=== PATIENT | female | born 1960 | race Caucasian/White ===

== ENCOUNTER → 2019-03-10 | Outpatient (CLI) | payer BC ==
--- NOTE | 2019-03-10 12:59 | KCIC ---
EXAM: Lumbar spine MRI without contrast. HISTORY: Lower back pain and left lower extremity radiculopathy. TECHNIQUE: Multiplanar, multisequence magnetic resonance imaging of the lumbar spine was performed without contrast. COMPARISON: None. FINDINGS: There is lumbar levoscoliosis centered at L3. There is grade 1 anterolisthesis of L4 and L5 on S1, measuring 3 mm and 5 mm. There is 4 mm retrolisthesis of L1 on L2 and L2 on L3 and 2 mm right listhesis of L3 on L4. There is degenerative endplate remodeling and disc desiccation at all levels. There are few incidental osseous hemangiomas. There is no suspicious osseous lesion. There is edema within the right greater than left L4 and L5 pedicles, likely degenerative or due to a stress reaction. The conus terminates at the superior aspect of L2. At T10-T11, there is a posterior disc protrusion superimposed on a disc bulge and endplate remodeling. There is mild central canal stenosis, partially included on the [id number]. At T11-T12, there is a minimal posterior central disc protrusion. There is mild bilateral facet arthropathy. There is no stenosis. At T12-L1, there is no stenosis. At L1-L2, there is a disc bulge and endplate osteophytosis. There is mild bilateral facet arthropathy. There is no stenosis. At L2-L3, there is a right lateral predominant disc bulge and endplate osteophytosis. There is moderate right and mild left facet arthropathy. There is mild central canal stenosis. At L3-L4, there is a right lateral predominant disc bulge and endplate osteophytosis. There is moderate right and mild left facet arthropathy. There is prominent dorsal epidural fat. There is mild central canal stenosis. At L4-L5, there is a right lateral predominant disc bulge and endplate osteophytosis. There is severe bilateral facet arthropathy. There is hypertrophy of the ligamentum flavum. There is prominent dorsal epidural fat. There is mild bilateral foraminal stenosis. There is severe central canal stenosis. At L5-S1, there is a posterior central disc protrusion with 2 mmHg inferior extrusion and annular tear superimposed on a left lateral predominant disc bulge and endplate osteophytosis. There is mild right and moderate left facet arthropathy. There is abutment the exiting left L5 nerve root without significant foraminal stenosis. IMPRESSION: 1. Multilevel degenerative change throughout the lower thoracic and lumbar spine, described in detail above. This is associated with mild central canal stenosis at L2-L3 and L3-L4, mild bilateral foraminal and severe central canal stenosis at L4-L5 and abutment of the exiting left L5 nerve root without significant foraminal stenosis at L5-S1. 2. Lumbar scoliosis and mild multilevel listhesis, described above. 3. Edema within the bilateral L5 and L4 pedicles, likely degenerative or due to a stress reaction. Electronically signed by: Devika Farah MD (03/10/2019 12:57 PM) [place] [id number]
== END | disposition home or self-care (01) ==
LOC: KCIC MRI 10:50
PROVIDERS: ATTEND Specialist
DX: M51.24 Other intervertebral disc displacement, thoracic region (principal); M51.27 Other intervertebral disc displacement, lumbosacral region; M12.88 Other specific arthropathies, not elsewhere classified, other specified site; M47.815 Spondylosis without myelopathy or radiculopathy, thoracolumbar region; M48.05 Spinal stenosis, thoracolumbar region; M25.78 Osteophyte, vertebrae
CPT/HCPCS: 72148

== ENCOUNTER → 2019-04-19 | Outpatient (CLI) | payer BC ==
[~2019-04-19] MED LIST: ACET500T68 PO; BUPR150T15 PO; BUPR300T3 PO; DEXT10CA10 PO; IOHEXOL 180 MG/ML 10 ML VIAL. ONE; LAMO200T25 PO; OMEP40CA45 PO; TIZA4TAB2 PO; methylPREDNISolone ACETATE 40 MG/ML VIAL. ONE; methylPREDNISolone ACETATE 80 MG/ML VIAL. ONE
--- NOTE | 2019-04-19 18:13 | PAIN ---
DATE OF SERVICE: 04/19/2019 PROGRESS NOTE FOR INITIAL CONSULTATION FOR PAIN CLINIC CHIEF COMPLAINT: Low back and left lower extremity pain. HISTORY OF PRESENT ILLNESS: This is a 59-year-old female who presents with history of pain in the low back, left lower extremity for about 2 months, not the result of any specific injury or action that she is aware of, but increasingly worse with activity, especially at work. 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 The patient also has some pain radiating into the superior aspect of the lumbar spine into the mid upper back between the shoulders as well, worse on the left than the right. The pain is radiating to posterior gluteus, posterior thigh, posterior calf, lateral thigh and calf into the posterior lower leg and foot on the left side. The patient reports it is becoming more constant, sharp, shooting, numbness, radiating pain in the leg, intermittent in intensity. No significant radiation to the right side, but tenderness in the mid upper back as well and is aching quality in the back itself. The patient did have MRI scan of the lumbar spine showing some significant posterior central disk protrusion at L5-S1 with 2-mm inferior extrusion and annular tear superimposed on the left lateral predominant disk bulge and endplate osteophytosis abutting the exiting left L5 nerve root. L4-L5 shows right lateral predominant disk bulge and endplate osteophytosis with mild bilateral foraminal stenosis and severe central canal stenosis. The patient rates her disability rating 0-10, 10 being the worst, as a 7 with family home responsibilities, recreation, social activity, occupation and sexual behavior and life support activities, and 5 with self-care activities. The patient reports no significant loss of motor function, but significant fatigability in the left lower extremity with standing, walking, changing positions, better with sitting or lying down, does awaken her from sleep about 3-4 times a night, does not affect her bowel or bladder control, but again does affect her ability to walk. She is not using any assistive devices. The patient has tried a chiropractor treatment as well as exercise, also had epidural injections in early 1999 in an outside facility. 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 She is still doing some stretching and strengthening exercises as well, putting heat application on her back as well. The patient has tried ibuprofen and Tylenol, also hydrocodone and a muscle relaxer, she is not sure of the name of, which did help to a moderate extent with each of these. PAST MEDICAL HISTORY: Significant for cigarette smoking a third of a pack a day for 40 years, continues to smoke, skin cancer in 2015 on her left lower leg. PREVIOUS SURGERY: Include cataract extraction, right elbow fracture, closed reduction of the left finger, tonsillectomy, pilonidal cystectomy, cervical fusion C6-C7 in 2004 and cholecystectomy in 2009. CURRENT MEDICATIONS: Include Wellbutrin, lamotrigine, amphetamine, omeprazole, muscle relaxer, Tylenol, and Reliance. ALLERGIES: THE PATIENT IS ALLERGIC TO SULFA AND VANCOMYCIN, WHICH CAUSES A RASH. FAMILY HISTORY: Significant for hypercholesterolemia and arthritis. SOCIAL HISTORY: The patient drinks alcohol about 3-4 beers once or twice a week, smokes about a third of a pack of cigarettes, has for the past 40 years. Does not use any illegal, illicit or recreational drugs. She is , lives with her spouse, one child, living at home, lives locally in [place], [place]. 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 REVIEW OF SYSTEMS: The patient's review of systems is positive for those items mentioned in history of present illness. All systems reviewed and otherwise negative and well documented on the patient's chart. PHYSICAL EXAMINATION: VITAL SIGNS: The patient's blood pressure is 140/88, pulse 85, respirations are 16, temperature is 98.2 degrees Fahrenheit, height is 5 feet 6 inches, and weight is 196 pounds. GENERAL: The patient is awake, alert, oriented, appropriate, very pleasant demeanor. HEENT: Shows normocephalic, atraumatic. Extraocular movements are intact and symmetrical. Oral cavity shows mucous membranes moist and pink. Dentition is intact. NECK: Shows anterior throat supple without palpable lymphadenopathy noted. There is well-healed surgical scar in the right anterior throat is noted. Swallow reflex symmetrical. Neck shows full rotational motion of cervical spine, both laterally as well as extension and flexion without difficulty. CHEST: Shows normal on inspection. Breath sounds are clear bilaterally. HEART: Shows S1, S2 clear. No murmurs auscultated. ABDOMEN: Soft, nontender, nondistended. No palpable organomegaly is noted. No rebound or guarding demonstrated. BACK: Shows spine grossly in the midline. Normal-appearing thoracic kyphosis and some minor flattening of lumbar lordotic curvature. Lumbar paraspinous muscle shows symmetrical on inspection as is the thoracic paraspinous musculature with palpation shows some moderate tenderness diffusely in the left greater than the right thoracic middle and lower distribution of paraspinous muscles, but without specific trigger points, without atrophy or hypertrophy. Lumbar paraspinous muscle shows symmetrical with palpation shows some moderate tenderness diffusely bilaterally throughout the upper and lower distribution of paraspinous muscles, but only diffusely without significant radiation. The patient's back shows good rotational motion of lumbar spine, both laterally as well as extension and flexion without significant increase in pain, no tenderness over the spinous processes, sacrum or sacroiliac regions with palpation as well bilaterally. EXTREMITIES: The patient's lower extremities show deep tendon reflexes at 2+ in the patellar, 1+ tendo-calcaneus tendons. Motor exam is strong with 5/5 dorsiflexion, extension, quadriceps and hamstring flexion. Peripheral pulses are 1+ posterior tibia. No peripheral edema is noted bilaterally. Straight leg raise noted to be negative for reproduction of radicular symptoms on the right, but mildly tender, mildly positive on the left at about 45 degrees, decreased with knee flexion. Gaenslen's and Tio's maneuvers are negative bilaterally as well. The patient is able to stand, stand on her toes without significant difficulty or loss of balance, walks with normal appearing gait, does not appear to favor the right or left lower extremity significantly with a short walk in the office today. SKIN: Shows warm and dry, good turgor. No edema. No sores, rashes or bruising throughout. IMPRESSION: 1. This is a 59-year-old female with approximately 2-month history of increasing pain, low back, left lower extremity in a radicular pattern. 2. MRI scan of lumbar spine as noted. 3. Arthritis. 4. Cigarette smoking. PLAN: Options were discussed with the patient including conservative medical managements, physical therapies and interventional techniques. She would like to pursue interventional techniques. We discussed a lumbar epidural steroid injection using description as well as anatomical models to describe the procedure. Risks were then discussed including, but not limited to bleeding, infection, possibility of epidural hematoma, subsequent neurological compromise, dural puncture, headaches, spinal cord and/or nerve damage, side effects of steroid medication and poor results regarding pain control. The patient understands and wished to proceed. The patient will return to the clinic in approximately 2 weeks for followup. She was counseled on return appointment, activity level and side effects to be aware of. DIAGNOSES: Lumbar radiculopathy with lumbar degenerative disk disease and lumbar spinal stenosis. PROCEDURE: Lumbar epidural steroid injection, translaminar approach L5-S1 level using C-arm fluoroscopic guidance under sterile prep and drape using local anesthetic. MEDICATION INJECTED: A total of 120 mg Depo-Medrol plus 10 mL of preservative-free normal saline and 2 mL of contrast. CONDITION AT DISCHARGE: Stable. The patient tolerated procedure well, had no complications. MOE SORIA MD DR: CHANCE/javier JOB#: [id number] / [id number] ALONDRA Bangura MD
== END ==
LOC: PNCL 13:21
PROVIDERS: ATTEND Anesthesiology
DX: M51.16 Intervertebral disc disorders with radiculopathy, lumbar region (principal); M48.061 Spinal stenosis, lumbar region without neurogenic claudication; F17.210 Nicotine dependence, cigarettes, uncomplicated; Z85.828 Personal history of other malignant neoplasm of skin; Z90.49 Acquired absence of other specified parts of digestive tract; Z98.890 Other specified postprocedural states; Z88.1 Allergy status to other antibiotic agents
CPT/HCPCS: 62323; J1030; J1040; Q9965

== ENCOUNTER → 2019-05-03 | Outpatient (CLI) | payer BC ==
[~2019-05-03] MED LIST changes: -IOHEXOL 180 MG/ML 10 ML VIAL. ONE; -methylPREDNISolone ACETATE 40 MG/ML VIAL. ONE; -methylPREDNISolone ACETATE 80 MG/ML VIAL. ONE
--- NOTE | 2019-05-03 23:50 | PAIN ---
DATE OF SERVICE: 05/03/2019 PROGRESS NOTE FOR PAIN CLINIC DIAGNOSES: Lumbar radiculopathy with lumbar degenerative disc disease and lumbar spinal stenosis. HISTORY OF PRESENT ILLNESS: The patient is a 59-year-old female who returns for followup status post lumbar epidural steroid injection x 1. The patient reports about 60% improvement overall, still some pain in the low back and left lower extremity as it was previously, but much improved. The patient has been increasing her distance of walking, doing work activities, household activities, traveling with greater ease and comfort. The patient reports it still awakens her from sleep at night, but only about once every 6 hours. The patient reports it as a burning pain, it is in the low back, radiating to posterior gluteus, constant, aching pain across the back and some tingling and shooting into the leg. The patient reports it as a 6 on a scale of 10 at its worst over the past week, 4 on average, 2 at its least and is a 4 today. The patient reports no new motor or sensory deficits, no new bowel or bladder incontinence or other complaints. PHYSICAL EXAMINATION: VITAL SIGNS: The patient's blood pressure is 140/91, pulse 88, respirations are 18, temperature is 98.2 degrees Fahrenheit, height is 5 feet 6 inches, and weight is 197 pounds. GENERAL: The patient is awake, alert, oriented, appropriate, very pleasant demeanor. HEENT: Shows normocephalic and atraumatic. Extraocular movements are intact and symmetrical. Oral cavity shows mucous membranes moist and pink. Dentition is intact. NECK: Shows anterior throat supple without palpable lymphadenopathy noted. Swallow reflex symmetrical. CHEST: Shows normal on inspection. Breath sounds are clear to auscultation bilaterally. HEART: Shows S1 and S2 clear. No murmurs auscultated. ABDOMEN: Soft, obese, nontender, and nondistended. BACK: Shows spine grossly in the midline. Normal-appearing thoracic kyphosis and some minor flattening of lumbar lordotic curvature. Lumbar paraspinous muscle shows symmetrical on inspection, no radiation, no asymmetry. The patient shows full rotational motion of the lumbar spine, both laterally as well as extension and flexion without significant difficulty. EXTREMITIES: The patient's lower extremities show deep tendon reflexes 2+ in the patellar, 1+ tendo-calcaneus tendons. Motor exam is 5/5 with dorsiflexion, extension, quadriceps and hamstring flexion and symmetrical. Peripheral pulses are 1+ posterior tibial. No peripheral edema is noted bilaterally. PLAN: Options were discussed with the patient. The patient's old chart was reviewed as her current medication regimen updated. Current review of systems updated today as well. We will hold on any further injections at this time as she is doing quite a bit better and would like to increase her activity and see how she tolerates this. We also talked about a Medrol Dosepak, which we will give her today with instructions and side effects to be aware of. The patient will try this. In the meantime, we will have her back in about 2 weeks to see how she is doing. If significantly improves, may hold on any further injections. If not, we will plan on second lumbar epidural steroid injection at that time. MOE SORIA MD DR: CHANCE/javier JOB#: [id number] / [id number]
== END | disposition home or self-care (01) ==
LOC: PNCL 14:43
PROVIDERS: ATTEND Anesthesiology
DX: M51.16 Intervertebral disc disorders with radiculopathy, lumbar region (principal); M48.061 Spinal stenosis, lumbar region without neurogenic claudication
CPT/HCPCS: G0463

== ENCOUNTER → 2019-05-30 | Outpatient (CLI) | payer BC ==
[~2019-05-30] MED LIST changes: +IOHEXOL 180 MG/ML 10 ML VIAL. ONE; +methylPREDNISolone ACETATE 40 MG/ML VIAL. ONE; +methylPREDNISolone ACETATE 80 MG/ML VIAL. ONE
--- NOTE | 2019-05-30 22:56 | PAIN ---
DATE OF SERVICE: 05/30/2019 PROGRESS NOTE FOR PAIN CLINIC DIAGNOSES: Lumbar radiculopathy with lumbar degenerative disk disease and lumbar spinal stenosis. HISTORY OF PRESENT ILLNESS: The patient is a 59-year-old female who returns for followup status post lumbar epidural steroid injection x 1. The patient reports about 80% improvement until about 1 week ago. The patient reported about 60% improvement and it got better to 80% until the last week, the pain began to return, fairly significantly in the low back, left lower extremity, mostly in the posterior gluteus, radiating to posterior thigh, posterior calf to the level of the ankle. The patient reports it is sharp and shooting at times, radiating in quality, some on the lateral thigh as well, but mostly posteriorly. The patient reports it is an 8-9 on a scale of 10 at its worst, 8 on average, 3 at its least and is an 8 today. The patient reports it is worse with walking, standing, changing positions, better with sitting or lying down, does not awaken her from sleep at night. Initially, she was walking greater distances with greater ability to work and doing work activities, household activities with much greater ease and comfort, again sleeping well, but now the pain is beginning to return. PHYSICAL EXAMINATION: VITAL SIGNS: The patient's blood pressure is 137/77, pulse is 86, respirations are 18, temperature 98.2 degrees Fahrenheit, height is 5 feet 6 inches, weight is 197 pounds. GENERAL: The patient is awake, alert, oriented, appropriate, very pleasant demeanor. HEENT: Shows normocephalic, atraumatic. Extraocular movements are intact and symmetrical. Oral cavity: Mucous membranes moist and pink. Dentition is intact. NECK: Shows anterior throat supple without palpable lymphadenopathy noted. Swallow reflex symmetrical. CHEST: Shows normal on inspection. Breath sounds are clear bilaterally. HEART: Shows S1, S2 clear. No murmurs auscultated. ABDOMEN: Soft, nontender, nondistended. No palpable organomegaly is noted. No rebound or guarding demonstrated. BACK: Shows spine grossly in the midline. Normal appearing thoracic kyphosis and some minor flattening of lumbar lordotic curvature. Lumbar paraspinous muscle shows symmetrical on inspection, with palpation shows some moderate tenderness diffusely bilaterally going diffusely without significant radiation. The patient's back shows good rotational motion of lumbar spine, both laterally as well as extension and flexion without significant difficulty. EXTREMITIES: Lower extremities show deep tendon reflexes at 2+ in the patellar, 1+ tendo-calcaneus tendons. Motor exam is strong with 5/5 dorsiflexion, extension, quadriceps and hamstring flexion. Peripheral pulses are 1+ posterior tibia. No peripheral edema is noted bilaterally. Options were discussed with the patient. The patient's old chart was reviewed as her current medication regimen updated. Current review of systems updated today as well. We will proceed with a second in the series of lumbar epidural steroid injection today with fluoroscopic guidance. Risks were again discussed including, but not limited to bleeding, infection, possibility of epidural hematoma, subsequent neurological compromise, dural puncture, headaches, spinal cord and/or nerve damage, side effects of steroid medication and poor results regarding pain control. The patient understands and wished to proceed. The patient will return to clinic in approximately 2 weeks for followup, was counseled on return appointment, activity level and side effects to be aware of. DIAGNOSES: Lumbar radiculopathy with lumbar degenerative disk disease and lumbar spinal stenosis. PROCEDURE: Lumbar epidural steroid injection, translaminar approach at L5-S1 level using C-arm fluoroscopic guidance under sterile prep and drape using local anesthetic. MEDICATION INJECTED: A total of 120 mg Depo-Medrol plus 10 mL of preservative-free normal saline and 2 mL of contrast. CONDITION AT DISCHARGE: Stable. The patient tolerated the procedure well, had no complications. MOE SORIA MD DR: CHANCE/javier JOB#: [id number] / [id number]
== END ==
LOC: PNCL 13:55
PROVIDERS: ATTEND Anesthesiology
DX: M51.16 Intervertebral disc disorders with radiculopathy, lumbar region (principal); M48.061 Spinal stenosis, lumbar region without neurogenic claudication
CPT/HCPCS: 62323; J1030; J1040; Q9965

== ENCOUNTER → 2019-06-27 | Outpatient (CLI) | payer BC ==
--- NOTE | 2019-06-28 04:31 | PAIN ---
DATE OF SERVICE: 06/27/2019 PROGRESS NOTE FOR PAIN CLINIC DIAGNOSES: Lumbar radiculopathy with lumbar degenerative disk disease, lumbar spinal stenosis. HISTORY OF PRESENT ILLNESS: The patient is a 59-year-old female who returns for followup status post lumbar epidural steroid injection x 2, last seen 05/30/2019. The patient did very well with decrease in pain by about 50% overall, but only lasting for about 2 weeks. The patient reports the pain returned in the low back, left lower extremity, mostly in the posterior gluteus, posterior thigh, posterior calf and across the low back bilaterally. The patient reports also some perineal pain and some pain in the gluteus itself. The patient reports it is a 9 on a scale of 10 at its worst in the past week, 8 on average, 5 at its least and is an 8 today, worse with walking, standing, changing positions, much more noticeable at work when she is on her feet most of her working day. The patient reports it is aching and shooting in the legs, tingling and burning in the back, radiating into the lower extremities as well. The patient reports no new motor or sensory deficits, no new bowel or bladder incontinence. PHYSICAL EXAMINATION: VITAL SIGNS: The patient's blood pressure is 150/80, pulse 87, respirations 18, temperature 99.1 degrees Fahrenheit, height is 5 feet 6 inches, weight is 201 pounds. GENERAL: The patient is awake, alert, oriented, appropriate, very pleasant demeanor. HEENT: Shows normocephalic, atraumatic. Extraocular movements are intact and symmetrical. Oral cavity, mucous membranes moist and pink, dentition intact. NECK: Shows anterior throat is supple, without palpable lymphadenopathy noted. Swallow reflex symmetrical. CHEST: Shows normal on inspection. Breath sounds are clear to auscultation bilaterally. HEART: Shows S1, S2 clear. No murmurs auscultated. ABDOMEN: Soft, nontender, nondistended. BACK: Shows spine grossly in the midline. Normal appearing thoracic kyphosis and minor flattening of lumbar lordotic curvature. Lumbar paraspinous muscle shows symmetrical on inspection, with palpation there is some moderate tenderness in the low lumbar distribution only, slightly more on the left than the right, but present bilaterally without trigger points, without radiation. The patient has good rotational motion of lumbar spine both laterally as well as with extension and flexion without significant increase in pain. EXTREMITIES: Lower extremities show deep tendon reflexes 2+ in the patella, 1+ tendo-calcaneus tendons. Motor exam is strong with 5/5 dorsiflexion, extension, quadriceps and hamstring flexion symmetrical. Peripheral pulses are 1+ posterior tibia. No peripheral edema is noted. Options were discussed with the patient. The patient's old chart was reviewed as her current medication regimen updated. Current review of systems updated today as well. We will proceed with a third in the series of lumbar epidural steroid injection today with fluoroscopic guidance. Risks were again discussed including, but not limited to, bleeding, infection, possibility of epidural hematoma, subsequent neurological compromise, dural puncture, headaches, spinal cord and/or nerve damage, side effects of steroid medication and poor results regarding pain control. The patient understands and wished to proceed. The patient will return to clinic in approximately 2 weeks for followup. She was counseled on return appointment, activity level and side effects to be aware of. DIAGNOSES: Lumbar radiculopathy with lumbar degenerative disk disease, lumbar spinal stenosis. PROCEDURE: Lumbar epidural steroid injection, translaminar approach, at L5-S1 level using C-arm fluoroscopic guidance under sterile prep and drape using local anesthetic. MEDICATION INJECTED: A total of 120 mg Depo-Medrol plus 10 mL of preservative-free normal saline and 2 mL of contrast. CONDITION AT DISCHARGE: Stable. The patient tolerated procedure well, had no complications. MOE SORIA MD DR: CHANCE/javier JOB#: [id number] / [id number]
== END | disposition home or self-care (01) ==
LOC: PNCL 13:56
PROVIDERS: ATTEND Anesthesiology
DX: M51.16 Intervertebral disc disorders with radiculopathy, lumbar region (principal); M48.061 Spinal stenosis, lumbar region without neurogenic claudication; Z98.890 Other specified postprocedural states; Z88.1 Allergy status to other antibiotic agents
CPT/HCPCS: 62323; J1030; J1040; Q9965

== ENCOUNTER → 2019-11-21 | Outpatient (CLI) | payer BC ==
[~2019-11-21] MED LIST changes: +LACT1CAP29 PO
--- NOTE | 2019-11-21 14:45 | PAIN ---
DATE OF SERVICE: PROGRESS NOTE FOR PAIN CLINIC DIAGNOSES: Lumbar radiculopathy with lumbar degenerative disk disease, lumbar spinal stenosis. HISTORY OF PRESENT ILLNESS: The patient is a 59-year-old female who returns for followup status post lumbar epidural steroid injections x 3, most recently 06/27/2019. The patient did very well with about 80% improvement after the first injection, last injection was about 60% improvement overall. The patient reports still significant pain in the low back and the bilateral gluteus and into the posterior thighs, but not any further in the legs. The patient reports it is an 8 on a scale of 10 at its worst over the past week, 5 on average and 4 at its least and is a 5 today. It is aching type, shooting, burning at times, constant, sometimes stabbing pain in the back as well, better with sitting or lying down, worse with when she is on her feet, worse with working when she is on her feet most of the 10-12 hours a day, lifting, bending, stooping. The patient reports that the leg pain was better after the last injection, but the pain in the back is causing her to miss some work and she actually feels better when she is at bed rest for a day or two with the pain itself. The patient reports no new motor or sensory deficits. The patient reports no bowel or bladder incontinence. Reports it does awaken her from sleep, but not more than once every 6 hours or so. PHYSICAL EXAMINATION: VITAL SIGNS: The patient's blood pressure 141/79, pulse 90, respirations 18, temperature 98.8 degrees Fahrenheit, weight is 197 pounds. GENERAL: The patient is awake, alert, oriented, appropriate, very pleasant demeanor. HEENT: Shows normocephalic, atraumatic. Extraocular movements are intact and symmetrical. Oral cavity: Mucous membranes moist and pink. NECK: Shows anterior throat supple without palpable lymphadenopathy noted. Swallow reflex symmetrical. CHEST: Shows normal on inspection. Breath sounds are clear. No rales, rhonchi or wheezes auscultated. HEART: Shows S1, S2 clear. ABDOMEN: Soft, nontender, nondistended. BACK: Shows spine grossly in the midline. Normal appearing thoracic kyphosis, cervical lordotic curvature and thoracic and lumbar lordotic curvatures. Lumbar paraspinous muscle shows symmetrical on inspection, on palpation shows some moderate tenderness diffusely throughout the upper, middle and lower distribution of the paraspinous muscles bilaterally but only diffusely without significant radiation. The patient has good rotational motion of lumbar spine, both laterally as well as extension and flexion without significant difficulty or pain reported. No tenderness over the spinous processes, sacrum or sacroiliac regions. EXTREMITIES: The patient's lower extremities show deep tendon reflexes at 2+ in the patellar and tendo calcaneus tendons are 1+ bilaterally. Motor exam is strong with 5/5 dorsiflexion, extension, quadriceps and hamstring flexion symmetrical. Peripheral pulses are 1+ posterior tibia. No peripheral edema is noted bilaterally. Options were discussed with the patient. The patient's old chart was reviewed as her current medication regimen updated. Current review of systems updated today as well. We will proceed with a lumbar epidural steroid injection first in this series today with fluoroscopic guidance. Risks were again discussed including, but not limited to bleeding, infection, possibility of epidural hematoma, subsequent neurological compromise, dural puncture, headaches, spinal cord and/or nerve damage, side effects of steroid medication and poor results regarding pain control. The patient understands and wished to proceed. The patient will return to clinic in approximately 2 weeks for followup, was counseled on return appointment, activity level and side effects to be aware of. DIAGNOSES: Lumbar radiculopathy with lumbar degenerative disk disease and lumbar spinal stenosis. PROCEDURE: Lumbar epidural steroid injection, translaminar approach at the L5-S1 level using C-arm fluoroscopic guidance under sterile prep and drape using local anesthetic. MEDICATION INJECTED: A total of 120 mg Depo-Medrol plus 10 mL of preservative-free normal saline and 2 mL of contrast. CONDITION AT DISCHARGE: Stable. The patient tolerated the procedure well, had no complications. MOE SORIA MD DR: CHANCE/javier JOB#: [id number] / [id number]
== END ==
LOC: PNCL 13:11
PROVIDERS: ATTEND Anesthesiology
DX: M51.16 Intervertebral disc disorders with radiculopathy, lumbar region (principal); M48.061 Spinal stenosis, lumbar region without neurogenic claudication
CPT/HCPCS: 62323; J1030; J1040; Q9965

== ENCOUNTER → 2019-12-12 | Outpatient (CLI) | payer BC ==
[~2019-12-12] MED LIST changes: +GADOTERATE 7.5 MMOL/15ML VIAL. IVP ONE; -IOHEXOL 180 MG/ML 10 ML VIAL. ONE; -methylPREDNISolone ACETATE 40 MG/ML VIAL. ONE; -methylPREDNISolone ACETATE 80 MG/ML VIAL. ONE
--- NOTE | 2019-12-12 15:48 | RAD ---
MRI Lumbar Spine without contrast History: Low back pain Technique: Multiplanar, multi sequential noncontrast MR imaging was performed of the lumbar spine. Comparison: March 10, 2019 Findings: Lumbar vertebral body stature is maintained. There is again very mild grade 1 anterior spondylolisthesis L4-5 and L5-S1 and negligible posterior subluxation of L1 relative L2 and L2 relative L3, and L3 relative L4. There is moderate to severe degenerative disc disease L5-S1, to a lesser degree variably at more superior levels. Conus terminates near L1-2. There is mild edema of the bilateral L5 and L4 pedicles more likely to be reactive/degenerative in etiology. T11-12: There is facet degenerative change contributing to mild posterior narrowing of the left neural foramen. L1-L2: Spinal canal and neural foramina are adequate. This level was not included on the axial images. L2-L3: There is moderate facet degenerative change greater. There is mild buckling of the ligamentum flavum. There is negligible disc osteophyte complex. There is mild narrowing of the far lateral recesses bilaterally as seen previously, central canal overall adequate. Neural foramina are overall adequate. L3-L4: There is prominence of posterior epidural fat centrally. There is mild buckling of the ligamentum flavum and moderate facet hypertrophic change. There is mild narrowing of the right neural foramen, left neural foramen adequate. Spinal canal is overall adequate. L4-L5: There is moderate to severe buckling of the ligamentum flavum and facet degenerative change. There is new small synovial cyst in the left lateral recess posteriorly about 4 to 5 mm in size. There is mild prominence of posterior epidural fat centrally. There is again fairly severe spinal stenosis, somewhat increased left lateral recess stenosis from posteriorly by synovial cyst. There is [id number] narrowing of the left neural foramen, mild narrowing on the right. L5-S1: There is moderate to severe left and [id number] right facet degenerative change. There is mild buckling of the ligamentum flavum. Spinal canal is adequate. There is mild posterior narrowing of the left neural foramen, right neural foramen adequate. Impression: 1. There is new small synovial cyst in the posterior left lateral recess at L4-5 with resultant increased left lateral recess stenosis. There is again fairly severe spinal stenosis at L4-5. There is [id number] narrowing of the left L4-5 neural foramen, other mild narrowing as stated. There is degenerative disc disease greatest at L5-S1, to lesser degree at more superior levels. There is multilevel lumbar facet degenerative change, multilevel mild abnormal alignment. Electronically signed by: Griffin Mazariegos MD (12/12/2019 3:45 PM) [id number]
--- NOTE | 2019-12-12 16:31 | RAD ---
CERVICAL SPINE WO/W CONTRAST History:Reason: NECK PAIN, BILATERAL ARM RADICULOPATHY, HX CERVICAL FUSION Technique: Multiplanar, multi sequential without and with intravenous contrast MR imaging was performed of the cervical spine. Comparison: May 21, 2006 Findings: Postoperative changes anterior stabilization and interbody fusion C6-C7. Normal vertebral body height. No fracture. No pathologic signal abnormality within the cervical spinal cord. No pathologic enhancement. C2-C3: No canal or neuroforaminal narrowing. C3-C4: Disc bulge. Partial effacement of ventral CSF space. Minimal cord flattening. Dorsal CSF spaces preserved. Uncovertebral and facet arthropathy. Mild bilateral neuroforaminal narrowing. No canal narrowing. C4-C5: Posterior disc osteophyte complex. No canal narrowing. Uncovertebral and facet arthropathy. Severe left and mild right neuroforaminal narrowing. C5-C6: Posterior disc osteophyte complex eccentric to the left. Mild canal narrowing. Cord flattening. Uncovertebral and facet arthropathy. Severe left and mild right neuroforaminal narrowing. C6-C7: Intervertebral fusion. No canal narrowing. No neuroforaminal narrowing. C7-T1: Minimal anterolisthesis. No canal narrowing. Uncovertebral and facet arthropathy. Mild left neuroforaminal narrowing. No right neuroforaminal narrowing. Upper thoracic facet arthropathy contributing to neuroforaminal narrowing. No canal narrowing. Findings are progressed compared to 2006. Impression: 1. Multilevel cervical and thoracic spondylosis most prominent C5-C6 with mild canal narrowing and cord flattening, progressed compared to prior. 2. Multilevel neuroforaminal narrowing most prominent left C4-C5 and C5-C6. 3. Anterior stabilization and interbody fusion C6-C7. Electronically signed by: Cisco Christensen DO (12/12/2019 4:28 PM) [id number]
== END ==
LOC: MRI 14:12
PROVIDERS: ATTEND Anesthesiology
DX: M54.16 Radiculopathy, lumbar region (principal); M47.812 Spondylosis without myelopathy or radiculopathy, cervical region
CPT/HCPCS: 72148; 72156; A9575

== ENCOUNTER → 2020-03-05 | Outpatient (CLI) | payer BC ==
[~2020-03-05] MED LIST changes: -GADOTERATE 7.5 MMOL/15ML VIAL. IVP ONE; +IOHEXOL 180 MG/ML 10 ML VIAL. ONE; +methylPREDNISolone ACETATE 40 MG/ML VIAL. ONE; +methylPREDNISolone ACETATE 80 MG/ML VIAL. ONE
--- NOTE | 2020-03-05 14:54 | PDOC ---
Progress Note - Pain Clinic Date of Service: DOS: DATE: 03/05/20 TIME: 14:51 Diagnosis: Dx: Lumbar radiculopathy with lumbar degenerative disc disease lumbar spinal stenosis History or Present Illness: HPI: 60-year-old female returns follow-up status post lumbar epidural steroid injection x1 on November 21, 2019. Patient with 90% improvement for several weeks following the injection pain returning down the low back and leg in the left lower extremity posterior gluteus posterior thigh posterior calf some on the right as well mostly on the left patient reports an 8 on scale 10 is worse over the past week 6 on average for this least is a 4 today patient describes pain as aching and sharp tight in the low back rating the lower extremity mostly on the left side can be severe but on and off in intensity and severity patient reports most days it is barely manageable still waking from sleep about once every 5 hours or so does not cause any bowel or bladder incontinence or other complaints she is initially doing much better with distance walking doing household activities work activities with greater ease and comfort and try with greater ease as well. Physical Exam: VS: Blood pressure is 140/90 pulse 98 respirations 18 temperature is 98.4 F height 5 feet 6 inches weight is 197 pounds PE: PHYSICAL EXAMINATION: GENERAL: The patient is awake, alert, oriented, appropriate, very pleasant demeanor HEENT: Shows normocephalic, atraumatic. Extraocular movements are intact and symmetrical. Oral cavity: Mucous membranes moist and pink. NECK: Shows anterior throat supple without palpable lymphadenopathy noted. Swal low reflex symmetrical. CHEST: Shows normal on inspection. Breath sounds are clear bilaterally, no rales rhonchi or wheezes. HEART: Shows S1, S2 clear. No murmurs auscultated. ABDOMEN: Soft, nontender, nondistended, obese. No palpable organomegaly is no teresa. No rebound or guarding demonstrated. BACK: Shows spine grossly in the midline. Normal-appearing cervical lordotic curvature. There is slightly increased thoracic kyphosis, some minor flattening of the lumbar lordotic curvature. Lumbar paraspinous muscles show symmetrical on inspection, on palpation shows some moderate tenderness diffusely throughout the upper, middle and lower distribution of the paraspinous muscles bilaterally, but without specific trigger points, without radiation of pain. The patient has good rotational motion of the lumbar spine, both laterally as well as extension and flexion without significant difficulty. No tenderness over the spinous processes, sacrum or sacroiliac regions. EXTREMITIES: Lower extremities show deep tendon reflexes 2+ in the patellar and tendo calcaneus tendons. Motor exam is 5 on a scale of 5 with right dorsiflexion, extension, quadriceps and hamstring flexion and 5/5 on the left. Peripheral pulses are 1+ posterior tibial. No peripheral edema is noted bi laterally. Lower extremities are warm and dry to touch, equal in color and appearance. SKIN: Shows warm and dry, good turgor. No edema. No sores, rashes or bruising throughout. Procedure: Procedure: Options were discussed with patient. Patient will chart was reviewed as her current medication regimen updated current review of systems updated today as well. We will proceed with a second in the series lumbar epidural straight injection today with fluoroscopic guidance. Risks were discussed including but not limited to: Bleeding, infection, possibility of epidural hematoma and subsequent neurological compromise, dural puncture, headaches, spinal cord and/or nerve damage, side effects of steroid medication, and poor results regarding pain control. Patient understands wished to proceed. Patient return to clinic in possibly 2 weeks for follow-up was counseled as to return appointment activity level and side effects to be aware of. Medication Injected: Med Injected: Procedure is lumbar epidural steroid injection under local anesthetic using sterile prep and drape at the L5-S1 level using C-arm fluoroscopic guidance in both AP and lateral views medications injected is 120 mg Depo-Medrol + 10 mL preservative-free normal saline and 2 mL contrast- condition at discharge is stable patient tolerated procedure well had no complications. Condition at Discharge: Condition at Discharge: Condition at discharge is stable patient tolerated the procedure well had no complications. MOE SORIA MD Mar 05, 2020 14:54
== END | disposition home or self-care (01) ==
LOC: PNCL 14:07
PROVIDERS: ATTEND Anesthesiology
DX: M51.16 Intervertebral disc disorders with radiculopathy, lumbar region (principal); M48.061 Spinal stenosis, lumbar region without neurogenic claudication; Z98.890 Other specified postprocedural states; Z88.8 Allergy status to other drugs, medicaments and biological substances; Z88.1 Allergy status to other antibiotic agents
CPT/HCPCS: 62323; J1030; J1040; Q9965